=== PATIENT | female | born 1980 | race Caucasian/White ===

== ENCOUNTER 2017-07-30 17:33 | Emergency (ER) | payer BC ==
[~2017-07-30] VITALS: Ht 172.7 cm; Wt 112.8 kg
[~2017-07-30 17:33] MED LIST: ESCITALOPRAM OX10 MG PO; FLONASE16 G1 BOTH NARES; MEDROL DOSEPAK4 MG PO; PROVENTIL HFA6.7 GM IH; ZITHROMAX Z-PA250 MG PO
[2017-07-30] MEDS ORDERED: MELOXICAM7.5 MG PO (18:22)
[2017-07-30] MEDS ORDERED: CYCLOBENZAPRINE5 MG PO (18:22)
[2017-07-30] MEDS ORDERED: AMITRIPTYLINE H25 MG PO (18:22)
[2017-07-30] MEDS ORDERED: ESCITALOPRAM OX20 MG PO (18:22)
[2017-07-30 19:16] VITALS: BP 157/92
== END 2017-07-30 19:17 | disposition home or self-care (01) ==
LOC: EME 17:33
DX: S61.211A Laceration without foreign body of left index finger without damage to nail, initial encounter (principal); W26.0XXA Contact with knife, initial encounter; Y92.511 Restaurant or cafe as the place of occurrence of the external cause; Z23 Encounter for immunization
CPT/HCPCS: 99281; 99283